=== PATIENT | female | born 1980 | race Caucasian/White ===

== ENCOUNTER → 2017-05-12 | Emergency (ER) | payer OTHER ==
[~2017-05-12] VITALS: Ht 167.6 cm; Wt 127.3 kg
[~2017-05-12] MED LIST: DSS100 PO; Ibuprofen PO; PERCOCET PO
[2017-05-12 01:40] VITALS: BP 159/90; PULSE 95; RESP 20; O2SAT 98
--- NOTE | 2017-05-12 01:48 | ED.REPORT ---
HPI-Dyspnea / Wheezing Date of Service May 12, 2017 ED Provider: Dr. Biggs Pt is a 36 year old female presenting to the ED complaining of SOB onset just prior to arrival when she laid down to go to bed. Associated symptoms include slight trouble swallowing. Denies any chest pain, problems talking, or any other symptoms at this time. She states that this happened to her once before on May 02. She denies any hx of anxiety, and does not report a lot of stress currently. The SOB was a little better when she stood up and walked around. Nursing Notes Stated Complaint: HAVING A HARD TIME BREATHING Chief Complaint: Respiratory Distress Nursing Notes Reviewed: Yes Allergies: Coded Allergies: No Known Allergies (Unverified , 02/08/13) Scheduled PRN ([Percocet 5/325]) 1-2 TAB PO Q4 PRN PRN Every 4 Hours as needed for pain. ([Ibuprofen]) 800 MG PO Q6 PRN PRN Every 6 hours as needed. Docusate Sod-Expunged Drug, Do Not Renew! (Docusate Sod-Expunged Drug, Do Not Renew!) 100 Mg Capsule 100 MG PO BID PRN PRN Twice a day as needed. General Time Seen by MD: 01:48 Chief Complaint Shortness of breath Hx Obtained From: Patient Arrived By: Walk-in Sudden in Onset?: Yes Onset Occurred: Just prior to arrival Symptom Duration: Since onset Severity: Current: No pain currently Severity: Maximum: No pain Recent Healthcare: No recent doctor visit, No recent hospitalization Similar Sx Previous: Yes Past Medical History Past Medical History denies Past Surgical History denies Smoking History Unknown if Ever Smoker Ambulatory Status Independent Review of Systems Review of Systems Note: + Trouble swallowing Respiratory: Reports: Shortness of breath Cardiovascular: Denies: Chest pain Complete sys rev & neg: except as marked. Neurologic: Denies: Slurred speech, Unable to speak Physical Exam Initial Vital Signs Vital Signs (First) Date Time Temp Pulse Resp B/P Pulse Ox O2 Delivery O2 Flow Rate FiO2 05/12/17 01:40 36.5 95 20 159/90 98 Room Air Initial VS: Reviewed Head / Eyes: Atraumatic, Normocephalic, PERRL ENT: Mucous membranes moist, Conjunctiva normal, No scleral icterus Abdomen / GI: Soft, Non-tender, No guarding, No rebound, No distention Skin: Warm, Dry, No cyanosis Neurologic: Alert, Oriented, Nonfocal Psychiatric: Mood/affect normal, Behavior normal, Normal thought content General/Constitutional: Awake, Alert, No acute distress, Well appearing Does not appear anxious Neck: Atraumatic, Supple Respiratory / Chest: Breath sounds NL, Breath sounds = bilat, No respiratory distress, No rales, No rhonchi, No wheezing, No retractions, No stridor Cardiovascular: Heart rate NL, Regular rhythm, Heart sounds NL, Peripheral circulation NL Lower Extremity / Pelvis / MS: Neurologic intact, Vascular intact 1+ pitting edema Interpretation & Diagnostics Lab Results Interpretation Result Diagram: 05/12/17 0315 05/12/17 0315 Test 05/12/17 03:15 White Blood Count 8.7th/mm3 (3.8-10.1) Red Blood Count 4.54mil/mm3 (3.90-5.20) Hemoglobin 11.9g/dL (12.0-15.6) Hematocrit 36.4% (35.0-46.0) Mean Corpuscular Volume 80.2fL (81-100) Mean Corpuscular Hemoglobin 26.2pg (27.0-35.0) Mean Corpuscular Hemoglobin Concent 32.7% (32.0-37.0) Red Cell Distribution Width 13.6% (12.3-15.4) Platelet Count 241bil/L (150-400) Neutrophils (%) (Auto) 64.1% (40-74) Lymphocytes (%) (Auto) 25.2% (14-46) Monocytes (%) (Auto) 8.9% (4-12) Eosinophils (%) (Auto) 1.4% (0-5) Basophils (%) (Auto) 0.2% (0-3) D-Dimer < 0.50mg/L FEU (<0.50) Sodium Level 139mEq/L (134-144) Potassium Level 4.0mEq/L (3.5-5.2) Chloride Level 98mEq/L (97-108) Carbon Dioxide Level 24mmol/L (18-29) Blood Urea Nitrogen 15mg/dL (6-20) Creatinine 0.64mg/dL (0.57-1.00) Estimat Glomerular Filtration Rate 152mL/min (>59) Glucose Level 171mg/dL (60-99) Calcium Level 9.4mg/dL (8.5-10.1) Total Bilirubin 0.3mg/dL (0.0-1.2) Aspartate Amino Transf (AST/SGOT) 19U/L (0-50) Alanine Aminotransferase (ALT/SGPT) 28U/L (0-32) Alkaline Phosphatase 65U/L (25-150) Troponin T 0.010ug/L (0.0-0.011) Pro-B-Type Natriuretic Peptide 56pg/mL (0-130) Total Protein 7.3g/dL (6.4-8.4) Albumin 4.3g/dL (3.4-5.0) Hold [place] Top Tube Received (Received) ECG Interpretation Time: 02:08 Interpreted by: ED physician Normal ECG Interpretation: Normal ECG w/ rate of... (90), Normal sinus rhythm X-Ray Chest Interpretation Chest Xray Interpretation: No acute cardiopulmonary process. View: Portable, 1 view Interpretation / Wet Read by: Wet read ED physician Re-Eval/Medical Decision Re-Evaluation/Progress : Time of Eval: 04:27 Patient Status: Condition improved Re-Evaluation/Progress Note: Discussed lab and x ray results and plan for discharge. Pt understands and agrees with plan. Counseled Regarding: Diagnosis, Lab results, Need for follow-up, When/why to return to ED Discharge & Departure Impression: Primary Impression: Dyspnea Dyspnea type: unspecified Qualified Code: R06.00 - Dyspnea, unspecified Disposition: Home Discharge Condition All VS Reviewed: Yes Condition: Improved Additional Instructions: No abnormalities are found on the emergency room evaluation. Your symptoms were likely due to anxiety. If you have persistent problems, talk to your primary doctor about this, see referral below. Call me at [phone] between the hours of 9 PM at 6 AM for the next couple of nights of you have any questions or concerns. Referrals: [facility] Luis Attestation Portions of this note were transcribed by Jm Dooley. I, Dr. Biggs personally performed the history, physical exam and medical decision-making; I reviewed and confirmed the accuracy of the information in the transcribed note. Signed by: Luis Beckham, 05/12/2017 at [Time]. copies to: [facility] Georges Biggs MD May 12, 2017 01:48 JM DOOLEY May 12, 2017 02:02
[2017-05-12 03:28] LABS: BASOPHILS % (AUTO) 0.2 % (0-3); EOSINOPHILS % (AUTO) 1.4 % (0-5); MONOCYTES % (AUTO) 8.9 % (4-12); Mean Corpuscular Hemoglobin 26.2 pg (27.0-35.0); Mean Corpuscular Volume 80.2 fL (81-100); NEUTROPHILS % (AUTO) 64.1 % (40-74); Platelet Count 241 bil/L (150-400)
[2017-05-12 04:15] LABS: TROPONIN T 0.01 ug/L (0.0-0.011)
[2017-05-12 04:41] VITALS: BP 110/74; PULSE 78; RESP 14; O2SAT 98
--- NOTE | 2017-05-12 08:29 | DRSVH ---
PROCEDURE: X-RAY CHEST, TWO VIEWS ([id number]) INDICATIONS: dyspnea TECHNIQUE: 2 views of the chest were acquired. COMPARISON: None. FINDINGS: Surgical changes and devices: None. Lungs and pleura: No pleural effusions or pneumothorax. Lungs are clear. Mediastinum: Mediastinal contours are normal. Heart size is normal. Bones and chest wall: No suspicious bony abnormalities. Soft tissues appear unremarkable. IMPRESSION: 1. No acute cardiopulmonary disease. Dictated by: Parker Salvador M.D. on 05/12/2017 at 8:27 Approved by: Parker Salvador M.D. on 05/12/2017 at 8:27
== END ==
LOC: SED 01:35
DX: R06.02 Shortness of breath (principal); R13.10 Dysphagia, unspecified